=== PATIENT | female | born 1985 | race Caucasian/White ===

== ENCOUNTER 2018-07-15 06:02 | Day surgery (SDC) | payer OTHER ==
[2018-07-13 13:01] LABS: BASOPHILS # (AUTO) 0.1 K/uL (0.00-0.22); BASOPHILS % (AUTO) 1.2 % (0.0-2.0); EOSINOPHILS # (AUTO) 0.1 K/uL (0-0.4); EOSINOPHILS % (AUTO) 1.1 % (0.0-4.0); HEMATOCRIT 37.5 % (36-48); HEMOGLOBIN 12.7 g/dL (12.0-16.0); LYMPHOCYTES # (AUTO) 1.4 K/uL (2.5-16.5); LYMPHOCYTES % (AUTO) 22.1 % (20.5-51.1); MEAN CORPUSCULAR HEMOGLOBIN 28 pg (27-31); MEAN CORPUSCULAR HGB CONC 34 g/dL (33-37); MEAN CORPUSCULAR VOLUME 81.5 fL (80-94); MONOCYTES # (AUTO) 0.7 K/uL (0.8-1.0); MONOCYTES % (AUTO) 11.9 % (1.7-9.3); NEUTROPHILS # (AUTO) 3.9 K/uL (1.8-7.7); NEUTROPHILS % (AUTO) 63.7 % (42.2-75.2); PLATELET COUNT (AUTO) 321 K/uL (140-450); RED CELL DISTRIBUTION WIDTH 13.4 % (11.6-13.7); WHITE BLOOD COUNT (AUTO) 6.1 K/uL (4.8-10.8)
[2018-07-13 13:24] LABS: ALBUMIN 3.4 g/dL (3.4-5.0); ANION GAP 7.9 (8-16); CARBON DIOXIDE 28.3 mmol/L (21-32); CREATININE 0.6 mg/dL (0.6-1.3); POTASSIUM 4.2 mmol/L (3.5-5.1); TOTAL BILIRUBIN 0.5 mg/dL (0.0-1.0)
[~2018-07-15] VITALS: Ht 160 cm; Wt 62.6 kg
[~2018-07-15 06:02] MED LIST: ASPI81EC97 PO; PROG1 PO; SIRO0.5T PO; VAS2.5 PO
[2018-07-15] MEDS ORDERED: PROPOFOL 200 MG/20 ML VIAL IV ONE (07:30)
[2018-07-15] MEDS ORDERED: MIDAZOLAM 2 MG/2 ML VIAL ONE (07:33)
[2018-07-15] MEDS ORDERED: fentaNYL 0.05 MG/ML VIAL ONE (07:33)
[2018-07-15] MEDS ORDERED: MEPERIDINE 25 MG/ML SYR ONE ×2 (07:48→08:44)
[2018-07-15] MEDS ORDERED: ENAL10TA8 PO (07:48)
[2018-07-15] MEDS ORDERED: PRAV20TA2 PO (07:48)
[2018-07-15] MEDS ORDERED: ASPI81CT89 PO (07:48)
[2018-07-15] MEDS ORDERED: SIRO1TAB5 PO (07:48)
[2018-07-15] MEDS ORDERED: TACR1CAP10 PO (07:48)
[2018-07-15] MEDS ORDERED: IBUPROFEN 800 MG TAB PO PRN (07:55)
[2018-07-15] MEDS ORDERED: MORPHINE SULFATE 4 MG/ML SYR IM/IVP PRN (07:55)
[2018-07-15] MEDS ORDERED: ACETAMINOPHEN/CODEINE 300/30MG 1 TAB PO PRN (07:55)
[2018-07-15] MEDS ORDERED: ONDANSETRON 4 MG/2 ML VIAL IVP PRN ×2 (07:55→08:20)
[2018-07-15] MEDS ORDERED: LACTATED RINGERS 1,000 ML IV SCH (08:19)
[2018-07-15] MEDS ORDERED: MEPERIDINE 25 MG/ML SYR IVP PRN (08:20)
[2018-07-15] MEDS ORDERED: HYDROmorphone 1 MG/ML AMP IVP PRN (08:20)
== END 2018-07-15 10:10 | disposition home or self-care (01) ==
LOC: MDS 06:02 → MMU 06:04 → MDS 10:10
PROVIDERS: ATTEND Obstetrics & Gynecology
DX: N87.9 Dysplasia of cervix uteri, unspecified (principal); I10 Essential (primary) hypertension; Z98.51 Tubal ligation status; Z88.6 Allergy status to analgesic agent; Z94.1 Heart transplant status; Z87.440 Personal history of urinary (tract) infections; Z79.82 Long term (current) use of aspirin; Z79.899 Other long term (current) drug therapy
CPT/HCPCS: 36415; 57522; 71045; 80053; 84702; 85025; 93005; J2175; J2250; J2704; J3010; J7030; J7120

== ENCOUNTER 2019-05-02 17:43 | Emergency (ER) | payer OTHER ==
[~2019-05-02] VITALS: Ht 160 cm; Wt 59.0 kg
[~2019-05-02 17:43] MED LIST changes: +ASPI-1718 PO; -ASPI81EC97 PO; +ENAL10TA8 PO; +PRAV20TA2 PO; -PROG1 PO; -SIRO0.5T PO; +SIRO1TAB5 PO; +TACR1CAP10 PO; -VAS2.5 PO
[2019-05-02 17:51] VITALS: BP 145/104
--- NOTE | 2019-05-02 18:06 | NUR ---
C/O NON RADIATING CONSTANT STERNAL CP 10/10 X 1 DAY. PT REPORTS N/V X 1 DAY. SKIN IS DRY/WARM, CAP REFIL <3 SEC. PT REPORTS HX OF HEART TRANSPLANT IN 1999. HX OF HTN & HYPERLIPIDEMIA. O2 SAT 99% RA, HR 86 BPM, RR 12, BP 145/104. PT SPEAKING IN CLEAR/FULL SENTENCES. A&O X4, ANSWERING QUESTIONS APPROPRIATELY. PT PLACED IN GOWN AND ON FIRE SAFETY DIRECTOR AT THIS TIME.
[2019-05-02] MEDS ORDERED: ASPIRIN 81 MG TAB.CHEW PO ONE (18:45)
[2019-05-02] MEDS ORDERED: NITROGLYCERIN 0.4 MG TAB SL ONE ×3 (18:45→19:25)
[2019-05-02 19:03] LABS: BASOPHILS % (AUTO) 0.3 % (0.0-2.0); EOSINOPHILS % (AUTO) 0.4 % (0.0-4.0); HEMATOCRIT 42.8 % (36-48); HEMOGLOBIN 14.5 g/dL (12.0-16.0); LYMPHOCYTES # (AUTO) 0.9 K/uL (2.5-16.5); MEAN CORPUSCULAR HEMOGLOBIN 28 pg (27-31); MEAN CORPUSCULAR HGB CONC 34 g/dL (33-37); MEAN CORPUSCULAR VOLUME 82.2 fL (80-94); MONOCYTES # (AUTO) 0.5 K/uL (0.8-1.0); MONOCYTES % (AUTO) 4.4 % (1.7-9.3); NEUTROPHILS # (AUTO) 9.9 K/uL (1.8-7.7); NEUTROPHILS % (AUTO) 86.9 % (42.2-75.2); PLATELET COUNT (AUTO) 345 K/uL (140-450); RED BLOOD CELL COUNT(AUTO) 5.21 MIL/uL (4.20-5.40); RED CELL DISTRIBUTION WIDTH 13.1 % (11.6-13.7); WHITE BLOOD COUNT (AUTO) 11.4 K/uL (4.8-10.8)
[2019-05-02 19:15] LABS: ANION GAP 9.3 (8-16); CREATININE 0.8 mg/dL (0.6-1.3); POTASSIUM 4.3 mmol/L (3.5-5.1)
[2019-05-02 19:21] LABS: ALBUMIN 3.8 g/dL (3.4-5.0); TOTAL BILIRUBIN 0.4 mg/dL (0.0-1.0)
[2019-05-02] MEDS ORDERED: ONDANSETRON 4 MG/2 ML VIAL IVP ONE (19:40)
[2019-05-02] MEDS ORDERED: MORPHINE SULFATE 2 MG/ML SYR IVP ONE (19:40)
[2019-05-02] MEDS ORDERED: MORPHINE SULFATE 4 MG/ML SYR IVP ONE ×2 (21:20→22:55)
--- NOTE | 2019-05-03 | NUR ---
PER DR AMARO PT MAY TAKE HER TACROLIMUS FROM HOME
--- NOTE | 2019-05-03 00:58 | NUR ---
PATIENT AWAKE IN BED. NO S/S OF DISTRESS NOTED AT THIS TIME. FAMILY MEMBER AT BEDSIDE.
[2019-05-03] MEDS ORDERED: MORPHINE SULFATE 4 MG/ML SYR IVP ONE (02:00)
--- NOTE | 2019-05-03 02:10 | NUR ---
SPOKE TO ANTON AT [facility] AND GAVE PATIENT REPORT
[2019-05-03 02:37] VITALS: BP 127/90
--- NOTE | 2019-05-03 02:37 | NUR ---
Patient to be transferred to [facility]. Is being transferred due to HIGHER ACUITY OF CARE. Receiving facility has accepting physician and available space. ER physician has signed transfer form. Patient or responsible democrat has agreed to transfer and signed form. Patient belongings inventoried and will be sent with patient. Copy of nursing notes, lab reports, EKG, Physicians Orders and X-rays to be sent with patient. Report called to ANTON at receiving facility.
== END 2019-05-03 02:37 | disposition short-term general hospital (02) ==
LOC: MED 17:43
DX: R07.9 Chest pain, unspecified (principal); I10 Essential (primary) hypertension; R06.02 Shortness of breath; R11.2 Nausea with vomiting, unspecified; Z94.1 Heart transplant status; Z88.6 Allergy status to analgesic agent; Z79.82 Long term (current) use of aspirin; Z79.899 Other long term (current) drug therapy; Z90.49 Acquired absence of other specified parts of digestive tract
CPT/HCPCS: 36415; 71045; 80053; 81025; 83690; 83880; 84484; 85025; 93005; 96374; 96375; 96376; 99285; J2270; J2405; Q0092

== ENCOUNTER 2019-08-21 20:47 | Emergency (ER) | payer OTHER ==
[~2019-08-21] VITALS: Ht 160 cm; Wt 63.0 kg
[2019-08-21 21:21] VITALS: BP 101/71
--- NOTE | 2019-08-21 21:30 | NUR ---
34 YO FEMALE BIB SELF FOR C/O INTERMITTENT CP X 1 DAY. PT STATES SHE HAS BEEN UNDER ALOT OF STRESS @ HOME WITH FAMILY DEATHS AND UPCOMING SURGERY FOR DAUGHTER. PT STATES PAIN IS PRESSURE; HEAVINESS TO MID STERNAL AREA. PT ALSO C/O UPPER ABD PAIN. DENIES N/V/D. GURNEY LOCKED IN LOWEST POSITION. ERMD @ BEDSIDE. HX: HEART TRANSPLANT, HYSTERECTOMY ALLERGIES: IBUPROFEN
--- NOTE | 2019-08-21 21:40 | NUR ---
PT AMBULATED TO ER BED 09
[2019-08-21] MEDS ORDERED: MORPHINE SULFATE 4 MG/ML SYR IVP ONE (22:10)
[2019-08-21] MEDS ORDERED: FAMOTIDINE 20 MG/2 ML VIAL IVP ONE (22:10)
[2019-08-21 23:11] LABS: CHOL/HDL RATIO 2.7 (1-4.5)
[2019-08-21 23:12] LABS: ALBUMIN 3.7 g/dL (3.4-5.0); ANION GAP 13.4 (8-16); CARBON DIOXIDE 24.7 mmol/L (21-32); CREATININE 0.8 mg/dL (0.6-1.3); POTASSIUM 4.1 mmol/L (3.5-5.1); TOTAL BILIRUBIN 0.4 mg/dL (0.0-1.0)
[2019-08-21 23:13] LABS: BASOPHILS # (AUTO) 0.1 K/uL (0.00-0.22); EOSINOPHILS # (AUTO) 0.1 K/uL (0-0.4); EOSINOPHILS % (AUTO) 1.8 % (0.0-4.0); HEMATOCRIT 44.7 % (36-48); HEMOGLOBIN 14.6 g/dL (12.0-16.0); LYMPHOCYTES # (AUTO) 2.1 K/uL (2.5-16.5); LYMPHOCYTES % (AUTO) 25.6 % (20.5-51.1); MEAN CORPUSCULAR HEMOGLOBIN 28 pg (27-31); MEAN CORPUSCULAR HGB CONC 33 g/dL (33-37); MEAN CORPUSCULAR VOLUME 85.6 fL (80-94); MONOCYTES % (AUTO) 12.6 % (1.7-9.3); NEUTROPHILS # (AUTO) 4.8 K/uL (1.8-7.7); PLATELET COUNT (AUTO) 265 K/uL (140-450); RED BLOOD CELL COUNT(AUTO) 5.22 MIL/uL (4.20-5.40); RED CELL DISTRIBUTION WIDTH 13.1 % (11.6-13.7); WHITE BLOOD COUNT (AUTO) 8.1 K/uL (4.8-10.8)
--- NOTE | 2019-08-21 23:30 | NUR ---
REASSESSED CP; PT STATES DECREASED PAIN TO 5/10 WITH PRESSURE. UPDATED ERMD. WILL CONTINUE TO OBSERVE.
[2019-08-22 00:10] LABS: CREATINE KINASE MB 0.1 ng/mL (0-3.6)
[2019-08-22 01:19] LABS: APPEARANCE,URINE CLEAR (CLEAR); BILIRUBIN,URINE NEGATIVE (NEGATIVE); BLOOD, URINE NEGATIVE (NEGATIVE); COLOR,URINE YELLOW (YELLOW); LEUKOCYTE ESTERASE ,URINE NEGATIVE (NEGATIVE); NITRITE, URINE NEGATIVE (NEGATIVE); UGLUCOSE NEGATIVE (NEGATIVE)
--- NOTE | 2019-08-22 02:04 | NUR ---
Patient discharged with v/s stable. Written and verbal after care instructions given and explained BY DR RODRIGUEZ. Patient alert, oriented and verbalized understanding of instructions BY DR RODRIGUEZ. Ambulatory with steady gait. All questions addressed prior to discharge BY DR RODRIGUEZ. ID band removed. Patient advised to follow up with PMD. Rx of pepcid given. Patient educated on indication of medication including possible reaction and side effects. Opportunity to ask questions provided and answered BY DR RODRIGUEZ.
[2019-08-22 02:05] VITALS: BP 107/68
== END 2019-08-22 02:04 | disposition home or self-care (01) ==
LOC: MED 20:47
DX: K27.9 Peptic ulcer, site unspecified, unspecified as acute or chronic, without hemorrhage or perforation (principal); I10 Essential (primary) hypertension; Z98.890 Other specified postprocedural states; Z79.899 Other long term (current) drug therapy; Z79.82 Long term (current) use of aspirin; Z88.8 Allergy status to other drugs, medicaments and biological substances
CPT/HCPCS: 36415; 71045; 80053; 80061; 81003; 82550; 82553; 83880; 84484; 85025; 85379; 93005; 96374; 96375; 99284; J2270; J3490; Q0092

== ENCOUNTER 2020-01-08 09:04 | Emergency (ER) | payer OTHER ==
[~2020-01-08] VITALS: Ht 160 cm; Wt 71.3 kg
[~2020-01-08 09:04] MED LIST changes: -ASPI-1718 PO; +ASPI-1822 PO
[2020-01-08 09:10] VITALS: BP 140/108
[2020-01-08] MEDS ORDERED: FAMOTIDINE 20 MG/2 ML VIAL IVP ONE (09:30)
[2020-01-08] MEDS ORDERED: MORPHINE SULFATE 2 MG/ML SYR IVP ONE (09:30)
[2020-01-08] MEDS ORDERED: ONDANSETRON 4 MG/2 ML VIAL IVP ONE (09:30)
[2020-01-08] MEDS ORDERED: NACL 0.9% 1,000 ML IV ONE (09:30)
--- NOTE | 2020-01-08 09:31 | NUR ---
CP, N/V X 12 HOURS, WAS SSEN AT [facility] FOR SAME S/S PAIN 8/10 HX-HTN,HEART TRANSPLANT. DENIES DIARRHEA; SKIN IS PINK/WARM/DRY; AAOX4 WITH EVEN AND STEADY GAIT; LUNGS CLEAR BL; HR EVEN AND REGULAR; PT DENIES ANY FEVER, SOB, OR COUGH AT THIS TIME; PATIENT STATES PAIN OF 8/10 AT THIS TIME; VSS; PATIENT POSITIONED FOR COMFORT; HOB ELEVATED; BEDRAILS UP X2; BED DOWN. ER MD MADE AWARE OF PT STATUS.
--- NOTE | 2020-01-08 09:31 | NUR ---
cardiac cath technologist at bedside.
[2020-01-08 10:06] LABS: BASOPHILS # (AUTO) 0.1 K/uL (0.00-0.22); BASOPHILS % (AUTO) 1.6 % (0.0-2.0); EOSINOPHILS # (AUTO) 0.1 K/uL (0-0.4); HEMOGLOBIN 14.9 g/dL (12.0-16.0); LYMPHOCYTES # (AUTO) 1.2 K/uL (2.5-16.5); LYMPHOCYTES % (AUTO) 17.8 % (20.5-51.1); MEAN CORPUSCULAR HEMOGLOBIN 29 pg (27-31); MEAN CORPUSCULAR HGB CONC 35 g/dL (33-37); MEAN CORPUSCULAR VOLUME 82.5 fL (80-94); MONOCYTES # (AUTO) 0.6 K/uL (0.8-1.0); MONOCYTES % (AUTO) 9.5 % (1.7-9.3); NEUTROPHILS # (AUTO) 4.6 K/uL (1.8-7.7); NEUTROPHILS % (AUTO) 70.1 % (42.2-75.2); PLATELET COUNT (AUTO) 312 K/uL (140-450); RED BLOOD CELL COUNT(AUTO) 5.21 MIL/uL (4.20-5.40); WHITE BLOOD COUNT (AUTO) 6.5 K/uL (4.8-10.8)
[2020-01-08 10:23] LABS: APPEARANCE,URINE SL CLOUDY (CLEAR); BILIRUBIN,URINE NEGATIVE (NEGATIVE); BLOOD, URINE TRACE-I (NEGATIVE); COLOR,URINE DARK YELLOW (YELLOW); LEUKOCYTE ESTERASE ,URINE NEGATIVE (NEGATIVE); NITRITE, URINE NEGATIVE (NEGATIVE); PH,URINE 5.5 (5.0-9.0); UGLUCOSE NEGATIVE (NEGATIVE)
[2020-01-08 10:31] LABS: ALBUMIN 3.8 g/dL (3.4-5.0); ANION GAP 14.2 (8-16); CARBON DIOXIDE 25.9 mmol/L (21-32); CREATININE 0.7 mg/dL (0.6-1.3); POTASSIUM 4.1 mmol/L (3.5-5.1); TOTAL BILIRUBIN 0.6 mg/dL (0.0-1.0)
[2020-01-08] MEDS ORDERED: ACETAMINOPHEN 325 MG TAB PO ONE (11:10)
[2020-01-08 11:13] LABS: RBC,URINE 0-5 /HPF (0-5); WBC,URINE 0-5 /HPF (0-5)
[2020-01-08 12:35] VITALS: BP 124/77
--- NOTE | 2020-01-08 12:35 | NUR ---
Patient discharged with v/s stable. Written and verbal after care instructions given and explained. Patient alert, oriented and verbalized understanding of instructions. Ambulatory with steady gait. All questions addressed prior to discharge. ID band removed. Patient advised to follow up with PMD. Rx of ZOFRAN,LOMOTIL given. Patient educated on indication of medication including possible reaction and side effects. Opportunity to ask questions provided and answered.
== END 2020-01-08 12:35 | disposition home or self-care (01) ==
LOC: MED 09:04
DX: R07.9 Chest pain, unspecified (principal); R11.10 Vomiting, unspecified; R19.7 Diarrhea, unspecified; I10 Essential (primary) hypertension; Z90.49 Acquired absence of other specified parts of digestive tract; Z79.899 Other long term (current) drug therapy; Z79.82 Long term (current) use of aspirin; Z90.710 Acquired absence of both cervix and uterus; Z88.8 Allergy status to other drugs, medicaments and biological substances; Z98.890 Other specified postprocedural states
CPT/HCPCS: 36415; 71045; 80053; 81001; 81025; 83690; 84484; 85025; 85379; 93005; 96361; 96374; 96375; 99285; J2270; J2405; J3490; J7030; Q0092